=== PATIENT | male | born 2000 | race Hispanic/Latino ===

== ENCOUNTER 2022-04-19 04:31 | Inpatient (IN) | payer BC ==
[2022-04-19 06:56] VITALS: BMI 29.1
[2022-04-19 06:58] LABS: SARS-CoV-2 NAA Rapid Test Not Detected (NotDetected)
[2022-04-19] MEDS ORDERED: Acetaminophen 325 MG TAB ONE (07:22)
[2022-04-19] MEDS ORDERED: Calcium Carbonate 500 MG ChewTAB PO PRN (07:22)
[2022-04-19] MEDS ORDERED: Ondansetron ODT 4 MG TAB PO PRN (07:22)
[2022-04-19] MEDS ORDERED: Senokot S 8.6-50 MG TAB PO PRN (07:22)
[2022-04-19] MEDS ORDERED: Ondansetron PF 4 MG/2 ML Vial IVP PRN (07:22)
[2022-04-19] MEDS: Acetaminophen 325 MG TAB PO PRN ×2 (08:08→17:51)
[2022-04-19] MEDS ORDERED: Azithromycin 500 MG VIAL ONE (08:10)
[2022-04-19] MEDS: Azithromycin 500 MG in Sodium Chloride 0.9% 250 ML 250 ML IVPB SCH (08:26)
[2022-04-19] MEDS: Sodium Chloride 0.9% 1,000 ML IV SCH ×2 (08:26→17:37)
[2022-04-19 08:33] LABS: Hemoglobin 13.7 g/dL (14.0-18.0); Mean Corpuscular HGB CONC 34.2 g/dL (32.0-36.0); Mean Corpuscular Hemoglobin 31.8 pg (27.0-31.0); Mean Corpuscular Volume 92.8 fl (78.0-98.0); Mean Platelet Volume 8.9 fL (7.4-10.4); Platelet Count 265 10x3/uL (130-400); RBC Distribution Width 11.5 % (11.5-14.5); Red Blood Cell (RBC) Count 4.31 mill/uL (4.70-6.10)
[2022-04-19 08:34] LABS: Anion Gap 16 mmol/L (10-20); BUN (Urea Nitrogen) 6 mg/dL (8.9-20.6); Calc. Creatinine Clearance 208 mL/min (70-130); Calcium 8.8 mg/dL (7.8-10.44); Carbon Dioxide 20 mmol/L (22-29); Chloride 105 mmol/L (98-107); Estimated GFR 130; Glucose 148 mg/dL (70-105); Potassium 3.9 mmol/L (3.5-5.1); Sodium 137 mmol/L (136-145)
[2022-04-19 08:47] LABS: Band 56 % (5-11); Lymphocytes 1 % (21-51); MDiff Complete? YES; Metamyelocyte 1 % (0-0); Neutrophil 42 % (42-75); Platelet Morphology Comment Appears Adequate; Polychromasia SLIGHT = 2-3 cells (100X) (0-2/hpf); Vacuoles SLIGHT
[2022-04-19] MEDS ORDERED: cefTRIAXone\\ROCEPHIN 1 GM VIAL ONE (09:22)
[2022-04-19] MEDS: cefTRIAXone\\ROCEPHIN 1 GM in Sodium Chloride 0.9% 100 ML IVPB SCH (09:23)
[2022-04-19] MEDS ORDERED: methylPREDNISolone Sod Succ 40 MG VIAL IVP SCH (11:45)
[2022-04-19] MEDS ORDERED: Iopamidol-370 76% 500 ML 1 ML ONE (11:55)
[2022-04-19] MEDS ORDERED: FLU VACC QS2022-23(6MOS UP)/PF 60 MCG/0.5 ML SYRINGE IM ONE (15:45)
[2022-04-19] MEDS ORDERED: Ketorolac Tromethamine 30 MG/ML VIAL IVP SCH (17:45)
[2022-04-19] MEDS: Ipratropium/Albuterol 3 ML NEB NEB PRN (18:14)
[2022-04-20 04:34] LABS: Hemoglobin 13.3 g/dL (14.0-18.0); Mean Corpuscular HGB CONC 33.5 g/dL (32.0-36.0); Mean Corpuscular Hemoglobin 31.3 pg (27.0-31.0); Mean Corpuscular Volume 93.3 fl (78.0-98.0); Mean Platelet Volume 8.8 fL (7.4-10.4); Platelet Count 281 10x3/uL (130-400); RBC Distribution Width 11.6 % (11.5-14.5); Red Blood Cell (RBC) Count 4.26 mill/uL (4.70-6.10); White Blood Cell (WBC) Count 15.3 10x3/uL (4.8-10.8)
[2022-04-20] MEDS: Sodium Chloride 0.9% 1,000 ML IV SCH (04:52)
[2022-04-20 05:04] LABS: ALT (SGPT) 60 U/L (8-55); AST (SGOT) 61 U/L (5-34); Albumin 3.1 g/dL (3.5-5.0); Alkaline Phosphatase 56 U/L (40-110); Anion Gap 13 mmol/L (10-20); BUN (Urea Nitrogen) 16 mg/dL (8.9-20.6); Bilirubin, Total 0.3 mg/dL (0.2-1.2); Calc. Creatinine Clearance 228 mL/min (70-130); Calcium 9.5 mg/dL (7.8-10.44); Carbon Dioxide 22 mmol/L (22-29); Chloride 108 mmol/L (98-107); Estimated GFR 134; Globulin 3.8 g/dL (2.4-3.5); Glucose 150 mg/dL (70-105); Potassium 4.4 mmol/L (3.5-5.1); Protein, Total 6.9 g/dL (6.0-8.3); Sodium 139 mmol/L (136-145)
[2022-04-20 05:25] LABS: Band 31 % (5-11); Lymphocytes 5 % (21-51); MDiff Complete? YES; Metamyelocyte 1 % (0-0); Monocytes 4 % (0-10); Myelocyte 2 % (0-0); Neutrophil 57 % (42-75)
[2022-04-20] MEDS: predniSONE 20 MG TAB PO SCH (10:07)
[2022-04-20] MEDS: Azithromycin 500 MG in Sodium Chloride 0.9% 250 ML 250 ML IVPB SCH (10:07)
[2022-04-20] MEDS: cefTRIAXone\\ROCEPHIN 1 GM in Sodium Chloride 0.9% 100 ML IVPB SCH (10:08)
[2022-04-20] MEDS ORDERED: cefTRIAXone\\ROCEPHIN 1 GM VIAL ONE (10:12)
[2022-04-20] MEDS: Benzonatate 100 MG CAP PO PRN ×2 (10:14→20:33)
[2022-04-20 18:54] LABS: Strep pneumo Urine Ag NEGATIVE (NEGATIVE)
[2022-04-20] MEDS: Ipratropium/Albuterol 3 ML NEB NEB PRN (21:40)
[2022-04-20] MEDS ORDERED: Guaifenesin DM 100-10/5 ML UDCUP PO PRN (22:32)
[2022-04-20] MEDS ORDERED: guaiFENesin/Codeine 200 mg/20 mg 10 ml Cup PO PRN (22:48)
[2022-04-20] MEDS: Acetaminophen 325 MG TAB PO PRN (23:34)
[2022-04-21] MEDS: Ipratropium/Albuterol 3 ML NEB NEB PRN ×2 (04:13→06:40)
[2022-04-21 04:33] LABS: Hemoglobin 13.8 g/dL (14.0-18.0); Mean Corpuscular HGB CONC 34.9 g/dL (32.0-36.0); Mean Corpuscular Hemoglobin 32.7 pg (27.0-31.0); Mean Corpuscular Volume 93.5 fl (78.0-98.0); Mean Platelet Volume 8.2 fL (7.4-10.4); Platelet Count 334 10x3/uL (130-400); RBC Distribution Width 11.5 % (11.5-14.5); Red Blood Cell (RBC) Count 4.22 mill/uL (4.70-6.10); White Blood Cell (WBC) Count 15.6 10x3/uL (4.8-10.8)
[2022-04-21 04:37] LABS: Anion Gap 13 mmol/L (10-20); BUN (Urea Nitrogen) 18 mg/dL (8.9-20.6); CRP (Inflammatory) 16.85 mg/dL (= or < 0.5); Calc. Creatinine Clearance 178 mL/min (70-130); Carbon Dioxide 23 mmol/L (22-29); Chloride 106 mmol/L (98-107); Estimated GFR 124; Glucose 91 mg/dL (70-105); Potassium 3.8 mmol/L (3.5-5.1); Sodium 138 mmol/L (136-145)
[2022-04-21 05:44] LABS: Band 6 % (5-11); Lymphocytes 16 % (21-51); MDiff Complete? YES; Metamyelocyte 4 % (0-0); Monocytes 7 % (0-10); Myelocyte 3 % (0-0); Neutrophil 64 % (42-75); Platelet Morphology Comment Appears Adequate; RBC Morphology Normal
[2022-04-21] MEDS ORDERED: Morphine 2 MG/ML VIAL SLOW IVP SCH (06:30)
[2022-04-21] MEDS ORDERED: guaiFENesin ER 600 MG TAB PO SCH (10:00)
[2022-04-21] MEDS: predniSONE 20 MG TAB PO SCH (10:21)
[2022-04-21] MEDS: Acetaminophen 325 MG TAB PO PRN (10:21)
[2022-04-21] MEDS: cefTRIAXone\\ROCEPHIN 1 GM in Sodium Chloride 0.9% 100 ML IVPB SCH (10:23)
[2022-04-21] MEDS: Ipratropium/Albuterol 3 ML NEB NEB SCH ×2 (11:04→14:01)
[2022-04-21] MEDS: Azithromycin 500 MG in Sodium Chloride 0.9% 250 ML 250 ML IVPB SCH (11:32)
[2022-04-21] MEDS ORDERED: diphenhydrAMINE 50 MG/ML VIAL IVP PRN (12:17)
[2022-04-21] MEDS ORDERED: diphenhydrAMINE 50 MG/ML VIAL ONE (12:19)
[2022-04-21] MEDS ORDERED: ALPRAZolam 0.25 MG TAB PO PRN (14:13)
[2022-04-21] MEDS: Ipratropium/Albuterol 3 ML NEB EZPAP SCH ×3 (14:30→22:31)
[2022-04-21] MEDS: Cefepime 1 GM in Sodium Chloride 0.9% 100 ML IVPB SCH (20:35)
[2022-04-21] MEDS: Doxycycline 100 MG CAP PO SCH (20:41)
[2022-04-21] MEDS: guaiFENesin ER 600 MG TAB PO SCH (20:42)
[2022-04-21] MEDS ORDERED: Vancomycin 1 GM in Premix Bag 1 BAG IVPB SCH (21:00)
[2022-04-22] MEDS: Ipratropium/Albuterol 3 ML NEB EZPAP SCH ×6 (02:52→22:39)
[2022-04-22] MEDS: Vancomycin 1.5 GRAM/300 ML BAG 1.5 GM in Premix Bag 1 BAG IVPB SCH ×2 (04:24→16:59)
[2022-04-22 05:43] LABS: Hemoglobin 13.9 g/dL (14.0-18.0); Mean Corpuscular HGB CONC 34.3 g/dL (32.0-36.0); Mean Corpuscular Hemoglobin 31.8 pg (27.0-31.0); Mean Corpuscular Volume 92.7 fl (78.0-98.0); Mean Platelet Volume 7.7 fL (7.4-10.4); Platelet Count 336 10x3/uL (130-400); RBC Distribution Width 11.4 % (11.5-14.5); Red Blood Cell (RBC) Count 4.36 mill/uL (4.70-6.10); White Blood Cell (WBC) Count 15.7 10x3/uL (4.8-10.8)
[2022-04-22 05:58] LABS: Anion Gap 14 mmol/L (10-20); BUN (Urea Nitrogen) 11 mg/dL (8.9-20.6); CRP (Inflammatory) 15.77 mg/dL (= or < 0.5); Calc. Creatinine Clearance 219 mL/min (70-130); Calcium 8.6 mg/dL (7.8-10.44); Carbon Dioxide 23 mmol/L (22-29); Chloride 103 mmol/L (98-107); Estimated GFR 132; Glucose 87 mg/dL (70-105); Potassium 3.5 mmol/L (3.5-5.1); Sodium 136 mmol/L (136-145)
[2022-04-22 06:11] LABS: Band 8 % (5-11); Eosinophils 2 % (0-10); Lymphocytes 20 % (21-51); MDiff Complete? YES; Metamyelocyte 1 % (0-0); Monocytes 6 % (0-10); Myelocyte 2 % (0-0); Neutrophil 59 % (42-75); Reactive Lymphocytes 2 % (0-10)
[2022-04-22] MEDS: predniSONE 20 MG TAB PO SCH (09:21)
[2022-04-22] MEDS: guaiFENesin ER 600 MG TAB PO SCH ×2 (09:22→20:14)
[2022-04-22] MEDS: Doxycycline 100 MG CAP PO SCH ×2 (09:22→20:14)
[2022-04-22] MEDS: Cefepime 1 GM in Sodium Chloride 0.9% 100 ML IVPB SCH (09:22)
[2022-04-22] MEDS: Cefepime 2 GM in Sodium Chloride 0.9% 100 ML IVPB SCH (20:12)
[2022-04-23] MEDS: Ipratropium/Albuterol 3 ML NEB EZPAP SCH ×6 (02:40→22:21)
[2022-04-23 03:29] LABS: Hemoglobin 14.9 g/dL (14.0-18.0); Mean Corpuscular HGB CONC 36.1 g/dL (32.0-36.0); Mean Corpuscular Hemoglobin 33.6 pg (27.0-31.0); Mean Corpuscular Volume 93.2 fl (78.0-98.0); Mean Platelet Volume 7.6 fL (7.4-10.4); Platelet Count 376 10x3/uL (130-400); RBC Distribution Width 11.4 % (11.5-14.5); Red Blood Cell (RBC) Count 4.44 mill/uL (4.70-6.10); White Blood Cell (WBC) Count 16.1 10x3/uL (4.8-10.8)
[2022-04-23 03:40] LABS: Vancomycin, Trough 4.3 ug/mL
[2022-04-23 04:06] LABS: Band 3 % (5-11); Eosinophils 1 % (0-10); Lymphocytes 22 % (21-51); MDiff Complete? YES; Metamyelocyte 9 % (0-0); Monocytes 11 % (0-10); Myelocyte 2 % (0-0); Neutrophil 51 % (42-75); Platelet Morphology Comment Appears Adequate; Polychromasia SLIGHT = 2-3 cells (100X) (0-2/hpf)
[2022-04-23] MEDS: Vancomycin 1.5 GRAM/300 ML BAG 1.5 GM in Premix Bag 1 BAG IVPB SCH ×3 (04:09→20:56)
[2022-04-23] MEDS: Cefepime 2 GM in Sodium Chloride 0.9% 100 ML IVPB SCH ×2 (10:52→22:36)
[2022-04-23] MEDS: Doxycycline 100 MG CAP PO SCH ×2 (10:52→20:56)
[2022-04-23] MEDS: guaiFENesin ER 600 MG TAB PO SCH ×2 (10:52→20:56)
[2022-04-23] MEDS: predniSONE 20 MG TAB PO SCH (10:52)
[2022-04-24] MEDS: Ipratropium/Albuterol 3 ML NEB EZPAP SCH ×3 (02:13→11:01)
[2022-04-24 04:00] LABS: Vancomycin, Trough 11.9 ug/mL
[2022-04-24] MEDS: Vancomycin 1.5 GRAM/300 ML BAG 1.5 GM in Premix Bag 1 BAG IVPB SCH (04:47)
[2022-04-24] MEDS ORDERED: Vancomycin HCl 1.75 GM in Sodium Chloride 0.9% 500 ML IVPB SCH (05:00)
[2022-04-24] MEDS: Cefepime 2 GM in Sodium Chloride 0.9% 100 ML IVPB SCH (09:02)
[2022-04-24] MEDS: Doxycycline 100 MG CAP PO SCH (09:04)
[2022-04-24] MEDS: guaiFENesin ER 600 MG TAB PO SCH (09:04)
[2022-04-24 11:56] VITALS: BP 136/75; TEMP 98.3
[2022-04-24] MEDS ORDERED: VANCOMYCIN 1.75 GM/500 ML BAG 1.75 GM in Premix Bag 1 BAG IVPB SCH (13:00)
[2022-04-24 22:36] LABS: Mycoplasma pneumoniae IgG AB Less than 100 U/mL (0-99); Mycoplasma pneumoniae IgM AB Less than 770 U/mL (0-769)
== END 2022-04-24 12:05 | disposition home or self-care (01) | DRG 871 ==
LOC: ERS 04:31 → ERHOLD 06:07 → 2NO 11:17
PROVIDERS: ADMIT Internal Medicine; ATTEND Family Medicine
DX: A41.50 Gram-negative sepsis, unspecified (principal); J15.6 Pneumonia due to other Gram-negative bacteria; J96.01 Acute respiratory failure with hypoxia; F17.210 Nicotine dependence, cigarettes, uncomplicated; Z20.822 Contact with and (suspected) exposure to COVID-19; Z79.899 Other long term (current) drug therapy
CPT/HCPCS: 36415; 36416; 71046; 71275; 80048; 80053; 80202; 84145; 85025; 86140; 86713; 87040; 87070; 87081; 87205; 87449; 94640; J0456; J0692; J0696; J1200; J1650; J1885; J2272; J2920; J3370; J3490; J7030; J7050; J7512; J7620; Q9967; U0002